=== PATIENT | female | born 1940 | race Caucasian/White ===

== ENCOUNTER → 2020-07-10 | Outpatient (CLI) | payer MEDICARE ==
--- NOTE | 2020-07-17 10:31 | MM ---
Reason for exam: screening (asymptomatic). Last mammogram was performed 4 years and 6 months ago. History: Patient is postmenopausal. Physical Findings: A clinical breast exam by your physician is recommended on an annual basis and results should be correlated with mammographic findings. MG 3D Screening Mammo W/Cad Bilateral CC and MLO view(s) were taken. Prior study comparison: January 10, 2016, bilateral MG screening mammo w CAD. March 04, 2014, bilateral MG screening mammo w CAD. There are scattered fibroglandular densities. No significant changes when compared with prior studies. ASSESSMENT: Negative, BI-RAD 1 RECOMMENDATION: Routine screening mammogram of both breasts in 1 year.
== END | disposition home or self-care (01) ==
LOC: RADMAMWWP 15:53
PROVIDERS: ATTEND Family Medicine
DX: Z12.31 Encounter for screening mammogram for malignant neoplasm of breast (principal)
CPT/HCPCS: 77063; 77067

== ENCOUNTER → 2021-11-01 | Outpatient (CLI) | payer MEDICARE ==
--- NOTE | 2021-11-02 14:27 | MM ---
Reason for exam: screening (asymptomatic). Last mammogram was performed 1 year and 4 months ago. History: Patient is postmenopausal. Physical Findings: A clinical breast exam by your physician is recommended on an annual basis and results should be correlated with mammographic findings. MG 3D Screening Mammo W/Cad Bilateral CC and MLO view(s) were taken. Prior study comparison: July 10, 2020, bilateral MG 3d screening mammo w/cad. January 10, 2016, bilateral MG screening mammo w CAD. The breast tissue is heterogeneously dense. This may lower the sensitivity of mammography. Stable benign calcifications. There is no discrete abnormality. No significant changes when compared with prior studies. ASSESSMENT: Benign, BI-RAD 2 RECOMMENDATION: Routine screening mammogram of both breasts in 1 year.
== END | disposition home or self-care (01) ==
LOC: RADMAMWWP 10:48
PROVIDERS: ATTEND Family Medicine
DX: Z12.31 Encounter for screening mammogram for malignant neoplasm of breast (principal); Z78.0 Asymptomatic menopausal state
CPT/HCPCS: 77063; 77067

== ENCOUNTER → 2022-10-04 | Outpatient (CLI) | payer MEDICARE ==
--- NOTE | 2022-10-04 10:48 | US ---
EXAMINATION TYPE: US pelvis complete transvag DATE OF EXAM: 10/04/2022 COMPARISON: Pelvic ultrasound 01/31/2016 CLINICAL HISTORY: N95.0 POSTMENOPAUSAL BLEEDING. Bleeding TECHNIQUE: Transvaginal (TV EXAM MEASUREMENTS: Uterus: 5.6 x 3.5 x 5.2 cm Endometrial Stripe: Echogenic borders not well visualized. 1. Uterus: Retroverted Heterogenous 2. Endometrium: echogenic 3. Right Ovary: Obscured by overlying bowel gas 4. Left Ovary: Obscured by overlying bowel gas 5. Bilateral Adnexa: wnl 6. Posterior cul-de-sac: wnl IMPRESSION: 1. Heterogenous uterus which can be seen with fibroid changes versus adenomyosis. 2. Echogenic thin appearance of the endometrium. 3. Both ovaries are not visualized due to overlying bowel gas.
== END | disposition home or self-care (01) ==
LOC: RADUSWWP 08:55
PROVIDERS: ATTEND Obstetrics & Gynecology
DX: N85.8 Other specified noninflammatory disorders of uterus (principal); N95.0 Postmenopausal bleeding
CPT/HCPCS: 76830; 76856

== ENCOUNTER → 2025-01-26 | Outpatient (CLI) | payer MEDICARE ==
--- NOTE | 2025-01-26 12:50 | US ---
EXAMINATION TYPE: US bladder DATE OF EXAM: 01/26/2025 COMPARISON: NONE CLINICAL INDICATION: Female, 84 years old with history of R35.0 FREQUENCY OF MICTURITION; Frequency o f micturition TECHNIQUE: Grayscale and color doppler imaging of the urinary bladder. FINDINGS: EXAM MEASUREMENTS: Post Void Residual Volume: 14.3 mL Color Doppler performed to assess ureteral jets. Bilateral Jets seen: Yes Normal Post Void Residual (less than 50ml): Yes No distinct wall thickening or filling defect identified. No distinct mass identified. IMPRESSION: Unremarkable urinary bladder ultrasound. [facility], , 01/26/2025 12:48 PM
== END | disposition home or self-care (01) ==
LOC: RADUSWWP 11:00
PROVIDERS: ATTEND Family Medicine
DX: R35.0 Frequency of micturition (principal)
CPT/HCPCS: 76857

== ENCOUNTER → 2025-03-11 | Outpatient (CLI) | payer MEDICARE ==
--- NOTE | 2025-03-11 18:30 | MM ---
Reason for Exam: Screening (asymptomatic). Last mammogram was performed 3 year(s) and 4 month(s) ago. Patient History: Menarche at age 15. First Full-Term at age 26. Hysterectomy at age 83. Postmenopausal. Risk Values: Aminta 5 year model risk: 1.4%. NCI Lifetime model risk: 1.9%. Prior Study Comparison: 01/10/2016 Bilateral Screening Mammogram, [facility]. 07/10/2020 Bilateral Screening Mammogram, [facility]. 11/01/2021 Bilateral Screening Mammogram, [facility]. Tissue Density: There are scattered areas of fibroglandular density. Findings: Analyzed By CAD. Unchanged asymmetric densities lateral left breast and unchanged few secretory calcifications on the right. There is no suspicious group of microcalcifications or new suspicious mass in either breast. Overall Assessment: Benign, BI-RAD 2 Management: Screening Mammogram of both breasts in 1 year. Patient should continue monthly self-breast exams. A clinical breast exam by your physician is recommended on an annual basis. This exam should not preclude additional follow-up of suspicious palpable abnormalities. Note on Aminta scores and lifetime risk: 1. A Aminta score greater than 3% is considered moderate risk. If this is the case, consider specialist referral to assess eligibility for a risk reducing agent. 2. If overall lifetime risk for the development of breast cancer is 20% or higher, the patient may qualify for future screening with alternating mammogram and breast MRI. [facility], , 03/11/2025 6:27 PM. Electronically signed and approved by: Clara Sorenson M.D. Radiologist
== END | disposition home or self-care (01) ==
LOC: RADMAMWWP 11:54
PROVIDERS: ATTEND Family Medicine
DX: Z12.31 Encounter for screening mammogram for malignant neoplasm of breast (principal); R92.323 Mammographic fibroglandular density, bilateral breasts; R92.1 Mammographic calcification found on diagnostic imaging of breast; Z78.0 Asymptomatic menopausal state
CPT/HCPCS: 77063; 77067